=== PATIENT | female | born 1980 | race Caucasian/White ===

== ENCOUNTER 2016-06-21 19:33 | Emergency (ER) | payer BC ==
[~2016-06-21] VITALS: Ht 165.1 cm; Wt 136.1 kg
[2016-06-21] MEDS ORDERED: LIDO:MAALOX:DONNATAL 1:1:1 15 ML SINGLE DOSE SWSW ONE (20:00)
[2016-06-21 20:05] VITALS: BP 142/100
[2016-06-21 20:13] LABS: POTASSIUM ISTAT 3.9 mmol/L (3.5-5.0)
[2016-06-21] MEDS ORDERED: FAMO20TA5 PO (20:16)
--- NOTE | 2016-06-21 20:16 | PHYS DOC ---
Past Medical History Past Medical History: Depression, Other Additional Past Medical Histor: ENDOMETRIOSIS,GROWTH ON PITUATARY GLAND, PCOS Past Surgical History: Other Additional Past Surgical Histo: LAPAROSCOPY,L ORIF WRIST Alcohol Use: None Drug Use: None Adult General Chief Complaint Chief Complaint: CHEST PAIN HPI HPI Patient is a 35 year old female who presents with multiple symptoms intermittently over the past 2 days. She does note constant mid, lower left chest pressure for the past 2 days that is no better or worse with exertion or rest. She does note feeling short of breath sometimes. She feels stressed over the past few days and has had headaches at the end of the day and had a dizzy spell this afternoon when she was frustrated. She currently does not have a headache or dizziness. She currently is not short of breath. She denies palpitations, diaphoresis, fever or chills, nausea or vomiting, cough, hemoptysis, leg pain or swelling, abdominal pain, diarrhea, dysuria, vaginal bleeding or discharge. She was seen for this at urgent care and had EKG performed, and was sent here for further evaluation. Review of Systems Review of Systems Constitutional: Denies fever or chills [] Eyes: Denies change in visual acuity, redness, or eye pain [] HENT: Denies nasal congestion or sore throat [] Respiratory: Denies cough or shortness of breath [] Cardiovascular: No additional information not addressed in HPI [] GI: Denies abdominal pain, nausea, vomiting, bloody stools or diarrhea [] : Denies dysuria or hematuria [] Musculoskeletal: Denies back pain or joint pain [] Integument: Denies rash or skin lesions [] Neurologic: Denies headache, focal weakness or sensory changes [] Endocrine: Denies polyuria or polydipsia [] Family History Family History She denies history of young coronary artery disease or young sudden deaths Current Medications Current Medications Current Medications Medications (Trade) Dose Ordered Sig/Bebe Start Time Stop Time Status Last Admin Dose Admin Multi-Ingredient Mouthwash/Gargle (Gi Cocktail Single Dose) 15 ml 1X ONCE 06/21/16 20:00 06/21/16 20:01 DC 06/21/16 20:09 15 ML Allergies Allergies Allergies Coded Allergies Type Severity Reaction Last Updated Verified No Known Drug Allergies 06/21/16 No Physical Exam Physical Exam Constitutional: Well developed, well nourished, no acute distress, non-toxic appearance. [] HENT: Normocephalic, atraumatic, bilateral external ears normal, oropharynx moist, no oral exudates, nose normal. [] Eyes: PERRLA, EOMI. [] Neck: Normal range of motion, supple. [] Cardiovascular:Heart rate regular rhythm [] Lungs & Thorax: Bilateral breath sounds clear to auscultation. No chest wall tenderness [] Abdomen: Bowel sounds normal, soft, no tenderness. [] Skin: Warm, dry, no erythema, no rash. [] Back: No tenderness, no CVA tenderness. [] Extremities: No tenderness, ROM intact, no edema, no palpable cord. [] Neurologic: Alert and oriented X 3, normal motor function, normal sensory function, no focal deficits noted. [] Psychologic: Affect normal, judgement normal, mood normal. [] Current Patient Data Vital Signs Vital Signs Date Time Temp Pulse Resp B/P Pulse Ox O2 Delivery O2 Flow Rate FiO2 06/21/16 20:05 72 142/100 98 Room Air 06/21/16 19:38 97.4 18 97.4 Lab Values Laboratory Tests Test 06/21/16 20:02 POC Hemoglobin 13.6g/dL (12-15) POC Hematocrit 40% (36-40) POC Sodium 140mmol/L (135-145) POC Potassium 3.9mmol/L (3.5-5.0) POC Chloride 102mmol/L (98-110) POC Total CO2 27mmol/L (23-32) Anion Gap 15mmol/L (6-14) H POC Blood Urea Nitrogen 10mg/dL (8-26) POC Creatinine 0.8mg/dL (0.5-1.4) Glucose Level 86mg/dL (70-99) POC Ionized Calcium (Reid) 1.14mmol/L (1.13-1.32) POC Troponin I 0.00ng/ml (<0.08) Laboratory Tests 06/21/16 20:02 EKG EKG EKG as interpreted by me as normal sinus rhythm, rate 61, no ST-T changes, normal intervals, no ectopy Course & Med Decision Making Course & Med Decision Making Pertinent Labs and Imaging studies reviewed. (See chart for details) Workup is unremarkable. She feels slightly better after GI cocktail. Discussed symptoms are possibly related to acid reflux or gastritis in the setting of stress. Encouraged close primary care follow-up for this and high blood pressure here. Return precautions given. She understands and agrees with plan. Ely Disclaimer Ely Disclaimer This electronic medical record was generated, in whole or in part, using a voice recognition dictation system. Departure Departure Impression: Primary Impression: Chest pain Disposition: HOME, SELF-CARE Condition: STABLE Patient Instructions: Chest Pain (Nonspecific), [id number] Additional Instructions: Take famotidine for possible acid reflux. Follow-up with your primary care doctor. Return for any concerns. Scripts Famotidine 20 Mg [id number] Mg PO BID #30 TAB Prov:Rubén OROPEZA MD 06/21/16 Problem Qualifiers Primary Impression: Chest pain Chest pain type: unspecified Qualified Code: R07.9 - Chest pain, unspecified Rubén OROPEZA MD Jun 21, 2016 20:16
--- NOTE | 2016-06-22 09:16 | EKG ---
[facility] [address] [place] [address] Test Date: 2016-06-21 Test Time: 19:40:31 Pat Name: PHONG MACEDO Department: Room: Gender: F Quality Measurement Specialist: : [id number] Requested By: Rubén OROPEZA Order Number: [id number] Reading MD: Jayce Dorsey Measurements Intervals Petroleum Rate: 61 P: 42 WA: 168 QRS: 28 QRSD: 84 T: 53 QT: 414 QTc: 418 Interpretive Statements SINUS RHYTHM Electronically Signed On 06-24-2016 10:30:44 [employer] by Jayce Dorsey
== END 2016-06-21 20:25 | disposition home or self-care (01) ==
LOC: ER 19:33
DX: R07.9 Chest pain, unspecified (principal); F32.9 Major depressive disorder, single episode, unspecified
CPT/HCPCS: 80047; 84484; 93005; 99283-25